=== PATIENT | female | born 1990 | race Caucasian/White ===

== ENCOUNTER 2017-03-19 16:22 | Inpatient (IN) | payer SELFPAY ==
[2017-03-19 17:32] VITALS: BP 121/84; PULSE 77; RESP 22; TEMP 98; O2SAT 98
[2017-03-19] MEDS ORDERED: SENNOSIDES 8.6 MG TAB PO PRN (18:00)
[2017-03-19] MEDS ORDERED: ACETAMINOPHEN/HYDROcodone 325 MG/7.5 MG TAB PO PRN (18:00)
[2017-03-19] MEDS ORDERED: ONDANSETRON HCL 4 MG/2 ML VIAL IVP PRN (18:00)
[2017-03-19] MEDS ORDERED: Post-op Orders (for Pharmacy) MISC XX ONE (18:00)
[2017-03-19] MEDS ORDERED: SODIUM CHLORIDE 0.9% FLUSH 10 ML FLUSH IV FLUSH PRN (18:00)
[2017-03-19] MEDS ORDERED: LACTULOSE SYRUP 20 GM/30 ML CUP PO PRN (18:00)
[2017-03-19] MEDS ORDERED: diphenhydrAMINE HCL 25 MG CAP PO PRN (18:00)
[2017-03-19] MEDS: KETOROLAC TROMETHAMINE 30 MG/ML (IVP) VIAL IVP SCH ×2 (18:26→21:13)
[2017-03-19] MEDS: MORPHINE SULFATE 4 MG/ML INJ IV PRN ×2 (18:26→22:44)
[2017-03-19 20:58] VITALS: BP 151/76; PULSE 87; RESP 18; TEMP 99.7; O2SAT 99
[2017-03-19] MEDS: ACETAMINOPHEN/HYDROcodone 325 MG/10 MG TAB PO PRN (21:12)
[2017-03-19] MEDS: SODIUM CHLORIDE 0.9% FLUSH 10 ML FLUSH IV FLUSH SCH (21:12)
[2017-03-19] MEDS: DOCUSATE SODIUM 50 MG/SENNA 8.6 MG TAB PO SCH (21:12)
[2017-03-20 00:33] VITALS: BP 124/70; PULSE 62; RESP 18; TEMP 98.5; O2SAT 99
[2017-03-20] MEDS: ACETAMINOPHEN/HYDROcodone 325 MG/10 MG TAB PO PRN ×5 (04:10→23:32)
[2017-03-20 04:19] LABS: HEMATOCRIT 37.1 % (35.0-46.0); MEAN CELL VOLUME 88.8 FL (80.0-100.0); MEAN CORPUSCULAR HEMOGLOBIN 30.3 PG (27.0-34.0); MEAN CORPUSCULAR HGB CONC 34.1 % (32.0-36.0); PLATELET COUNT 332 TH/MM3 (150-450); RED BLOOD COUNT 4.18 MIL/MM3 (4.00-5.30); RED CELL DISTRIBUTION WIDTH 12.7 % (11.6-17.2); REVIEW FLAG FINAL; WHITE BLOOD COUNT 7.7 TH/MM3 (4.0-11.0)
[2017-03-20 04:25] LABS: PROTHROMBIN TIME - PATIENT 9.9 SEC (9.8-11.6)
[2017-03-20] MEDS ORDERED: LACTATED RINGER'S 1000 ML IV PRN (04:30)
[2017-03-20] MEDS ORDERED: CHLORHEXIDINE GLUCONATE 2 % 1 PACK (2 CLOTHS) TOPICAL PRN (04:30)
[2017-03-20] MEDS ORDERED: POVIDONE IODINE 5% (ANTISEPSIS KIT) 4 APPLICATIONS EACH NARE PRN (04:30)
[2017-03-20 04:53] VITALS: BP 104/73; PULSE 82; RESP 18; TEMP 96.9; O2SAT 99
[2017-03-20] MEDS: KETOROLAC TROMETHAMINE 30 MG/ML (IVP) VIAL IVP SCH ×3 (05:47→23:31)
[2017-03-20] MEDS: MORPHINE SULFATE 4 MG/ML INJ IV PRN (05:57)
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
[2017-03-20] MEDS: DOCUSATE SODIUM 50 MG/SENNA 8.6 MG TAB PO SCH ×2 (07:32→20:16)
[2017-03-20] MEDS: SODIUM CHLORIDE 0.9% FLUSH 10 ML FLUSH IV FLUSH SCH ×2 (07:56→20:17)
[2017-03-20 08:00] VITALS: BP 116/69; PULSE 73; RESP 16; TEMP 97.6; O2SAT 99
[2017-03-20] MEDS ORDERED: FAMOTIDINE 20 MG/2 ML VIAL ONE (11:12)
[2017-03-20] MEDS ORDERED: APREPITANT 40 MG CAP ONE (11:22)
[2017-03-20] MEDS ORDERED: GENTAMICIN SULFATE 80 MG/2 ML VIAL ONE (11:27)
[2017-03-20] MEDS ORDERED: VANCOMYCIN HCL 1000 MG VIAL ONE (12:17)
[2017-03-20] MEDS ORDERED: ceFAZolin INJ 1,000 MG VIAL IV ONE (13:23)
[2017-03-20] MEDS ORDERED: ACETAMINOPHEN/HYDROcodone 325 MG/10 MG TAB PO PRN (13:45)
[2017-03-20] MEDS ORDERED: MORPHINE SULFATE 4 MG/ML INJ IV PUSH PRN (13:45)
[2017-03-20] MEDS ORDERED: MISCELLANEOUS NURSING INFORMATION XX PRN (13:45)
[2017-03-20] MEDS ORDERED: Post-op Orders (for Pharmacy) MISC XX ONE (13:45)
[2017-03-20] MEDS ORDERED: NALOXONE HCL 0.4 MG/ML AMP IV PUSH PRN (13:45)
--- NOTE | 2017-03-20 13:52 | PD.OP ---
cc: Malik Ramirez MD Operative Report Date of Surgery: Mar 20, 2017 Preoperative Diagnosis: Bicondylar right tibial plateau fracture Postoperative Diagnosis: Procedure: Open reduction internal fixation bicondylar right tibial plateau fracture Anesthesia: Gen. Surgeon: Malik Ramirez Latcher(s): Ulises Kern PA-C The surgical procedure was assisted by my physician assistant banquet manager. My P.A. presence was necessary throughout this case for the manipulation and positioning of the surgical extremity. My P.A. was assisting me throughout the duration of this procedure. The skill set of a physician assistant banquet manager was medically necessary to complete this procedure. During the surgical case the surgical garment assembler was working at the back table and the physician assistant banquet manager was directly assisting me. Operation and Findings: This patient was seen and evaluated preoperatively. Patient sustained an injury resulting a bicondylar right tibial plateau fracture. Informed consent was obtained preoperatively after detailed discussion of the risks and benefits of surgery. Risk of surgery including bleeding, infection, nonunion, painful hardware, stiffness, loss of motion, arthritis, need for knee replacement, as well as medical complications including blood clots, stroke, heart attack, and were discussed. I also discussed the possibility of using allograft bone graft . Preoperatively the operative site was marked. Patient was brought to the operating room and placed on the operating room table. Intravenous sedation and general endotracheal anesthesia were administered. IV antibiotics were given and a time out procedure was preformed. The operative leg was prepped with alcohol followed by Hibiclens and draped in the usual sterile fashion. Attention was now turned towards the medial tibial plateau. A 6 inch incision was made over the posterior medial aspect of the tibial plateau. Saphenous vein was protected. The PES insertion was elevated to expose the posterior medial tibial plateau. Fracture was visualized. Attention was now turned toward reduction. Traction was applied. Fracture was manipulated. Fracture keyed in excellent alignment. A fracture tenaculum was used to compress fracture. K wires were used for provisional fixation. Fluoroscopy confirmed excellent alignment of fracture. A 3.5 cortical lag screw was placed from anterior to posterior. Good compression was obtained. Next attention was turned towards the lateral tibial plateau. A window was made in the metaphyseal region. Bone tamps were now used to elevate the depressed portion of the posterior lateral tibial plateau. Articular surface was elevated into excellent position. 20 cc of cancellus bone chips were now packed underneath the articular surface for additional support. Multiplanar fluoroscopy confirmed excellent alignment of fractures. A Synthes plate was now placed along the posterior medial tibial plateau. Plate was provisionally held to bone with K wires. Fluoroscopy confirmed plate placement. 3.5 cortical screws were used to compress plate to bone. Additional locking screws were placed proximally. 3 additional 3.5 cortical lag screws were placed from medial to lateral to support the articular surface. Screws were predrilled and premeasured for appropriate length. Final fluoroscopy showed excellent alignment of fracture with well-placed hardware. The incision was thoroughly irrigated. Incisions were thoroughly irrigated. Attention was now turned to closure. Fascia and iliotibial band were closed with #1 Vicryl,. Subcutaneous tissues closed with 3-0 Vicryl and skin was closed with delvin. Sterile dressings were applied. The patient was transferred to recovery in stable condition. Malik Ramirez MD Mar 20, 2017 13:52
[2017-03-20] MEDS ORDERED: DO NOT ADM ANY ANTICOAGULANT DRUGS PRN (13:55)
--- NOTE | 2017-03-20 13:57 | RADRPT ---
EXAM DATE/TIME: 03/20/2017 13:19 [place] COMPARISON: No previous studies available for comparison. INDICATIONS : ORIF right tibial plateau fracture. MEDICAL HISTORY : Unobtainable. SURGICAL HISTORY : Unobtainable. ENCOUNTER: Initial ACUITY: 1 day PAIN SCORE: Non-responsive. LOCATION: Right knee. FINDINGS: Plate with screws is seen bridging the plateau fracture. Alignment is anatomic. CONCLUSION: Anatomic alignment Caio Orozco MD FACR on March 20, 2017 at 13:55 Board Certified Radiologist. This report was verified electronically.
[2017-03-20] MEDS ORDERED: KETOROLAC TROMETHAMINE 30 MG/ML (IVP) VIAL IVP SCH (14:00)
[2017-03-20] MEDS ORDERED: HYDROmorphone HCL PF 1 MG/ML VIAL ONE (14:09)
[2017-03-20] MEDS ORDERED: *MEPERIDINE 25 MG INJ VIAL PERIprocedural Use ONLY ONE (14:19)
[2017-03-20] MEDS: LACTATED RINGER'S 1000 ML INJ 1,000 ML IV SCH (14:30)
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
[2017-03-20] MEDS ORDERED: ERGOCALCIFEROL (VIT D2) 50,000 UNIT CAP PO SCH (15:00)
[2017-03-20] MEDS ORDERED: *HYDROmorphone PF 1 MG VIAL PERIprocedural Use ONLY ONE (15:32)
[2017-03-20 16:36] VITALS: BP 120/83; PULSE 70; RESP 16; TEMP 96; O2SAT 97
[2017-03-20] MEDS: CALCIUM/VITAMIN D 250 MG/125 U TAB PO SCH (16:47)
[2017-03-20] MEDS: MORPHINE SULFATE 4 MG/ML INJ IV PUSH PRN (19:11)
[2017-03-20] MEDS: MAGNESIUM HYDROXIDE SUSP 30 ML CUP PO PRN (20:16)
[2017-03-20] MEDS: ceFAZolin 2 GM PREMIX 50 ML IV SCH (20:16)
[2017-03-20 20:53] VITALS: BP 117/72; PULSE 85; RESP 18; TEMP 98.3; O2SAT 98
[2017-03-20] MEDS: VANCOMYCIN INJ 1,000 MG in SODIUM CHLOR 0.9% 250 ML INJ 250 ML IV SCH (23:31)
[2017-03-21] VITALS (8 sets, daily range): BP systolic 101–126; BP diastolic 58–75; PULSE 58–80; RESP 16–18; TEMP 97.1–98.9; O2SAT 97–99
[2017-03-21] MEDS: MORPHINE SULFATE 4 MG/ML INJ IV PUSH PRN ×4 (00:59→22:39)
[2017-03-21] MEDS: LACTATED RINGER'S 1000 ML INJ 1,000 ML IV SCH ×2 (04:40→14:41)
[2017-03-21] MEDS: ACETAMINOPHEN/HYDROcodone 325 MG/10 MG TAB PO PRN ×5 (04:43→20:16)
[2017-03-21] MEDS: ceFAZolin 2 GM PREMIX 50 ML IV SCH ×3 (04:43→20:10)
--- NOTE | 2017-03-21 07:10 | PD.ORT.PN ---
Subjective Subjective Remarks POD 1 s/p ORIF right tibial plateau doing well. reports pain. has not been out of bed yet Objective Vitals Vital Signs Date Time Temp Pulse Resp B/P (MAP) Pulse Ox O2 Delivery O2 Flow Rate FiO2 03/21/17 04:11 98.9 59 18 123/70 (87) 98 03/21/17 01:39 98 Nasal Cannula 2.00 03/21/17 00:25 97.1 80 18 116/71 (86) 98 03/20/17 20:53 98.3 85 18 117/72 (87) 98 03/20/17 16:36 96.0 70 16 120/83 (95) 97 03/20/17 15:30 98.0 80 16 136/80 (98) 100 Nasal Cannula 2 03/20/17 15:15 67 16 130/77 (94) 97 Nasal Cannula 2 03/20/17 15:00 67 16 130/76 (94) 97 Nasal Cannula 2 03/20/17 14:45 69 16 127/77 (94) 98 Nasal Cannula 2 03/20/17 14:30 64 16 139/80 (99) 99 Nasal Cannula 2 03/20/17 14:15 82 16 145/89 (107) 100 Nasal Cannula 2 03/20/17 13:55 98.0 101 16 166/95 (118) 100 Nasal Cannula 2 03/20/17 08:00 97.6 73 16 116/69 (85) 99 I/O 03/20/17 03/20/17 03/20/17 03/21/17 03/21/17 03/21/17 07:00 15:00 23:00 07:00 15:00 23:00 Intake Total 0 ml 355.9 ml 250 ml Balance 0 ml 355.9 ml 250 ml Intake Oral 0 ml 240 ml IV Total 115.9 ml 250 ml # Voids 1 2 # Bowel Movements 0 0 Result Diagram: 03/20/17 0913 Objective Remarks RLE: dressings clean and dry. intact. NVI. +CKS. pain in calf with dorsiflexion. compartments soft Assessment & Plan Problem List: (1) Tibial plateau fracture, right ICD Codes: S82.141A - Displaced bicondylar fracture of right tibia, initial encounter for closed fracture Assessment and Plan 1) Right Tibial Plateau Fx s/p ORIF - POD 1 -NWB -knee brace -PT for PROM 0-90 -no active motion, leg lifts, quad sets -daily dressing changes POD 2 -plan for home with [facility] tomorrow if patient doing well -DVT prophylaxis -f/u with Jonatan or PA in 2 weeks Ulises Kern/First Tiffany JOHNSON Mar 21, 2017 07:10
[2017-03-21] MEDS ORDERED: XARE10TA PO (07:12)
[2017-03-21] MEDS ORDERED: HYDR-3583 PO (07:12)
[2017-03-21] MEDS ORDERED: WHEEMIS3 (07:12)
[2017-03-21] MEDS ORDERED: WALKER/ADULT/FO1 MIS (07:12)
--- NOTE | 2017-03-21 07:13 | HHI.FF ---
Face to Face Verification Diagnosis: (1) Tibial plateau fracture, right Physical Therapy Gait training Knee: Knee fracture, Protocol: Right, Non weight bearing Canvas Knee Splint: Remove only with PT Right LE Weight Bearing: Non WB, No Strengthening, No Quad Sets Right LE Range of Motion: Passive ROM (0-90deg) Nursing Dressing Changes: Daily dressing change, Bhupinder wrap, 4x4s, Xeroform I have seen patient Ginette Wing on 03/21/17. My clinical findings support the need for the requested home health care services because: Ltd mobility - disease progression I certify that my clinical findings support that this patient is homebound because: Post-op weakness Ulises Kern/First Tiffany JOHNSON Mar 21, 2017 07:13
[2017-03-21 07:35] LABS: HEMATOCRIT 32.7 % (35.0-46.0); REVIEW FLAG FINAL
[2017-03-21] MEDS: KETOROLAC TROMETHAMINE 30 MG/ML (IVP) VIAL IVP SCH ×3 (08:44→22:40)
[2017-03-21] MEDS: CHOLECALCIFEROL (VIT D3) 1000 UNIT TAB PO SCH (08:46)
[2017-03-21] MEDS: CALCIUM/VITAMIN D 250 MG/125 U TAB PO SCH ×3 (08:46→17:28)
[2017-03-21] MEDS: DOCUSATE SODIUM 50 MG/SENNA 8.6 MG TAB PO SCH ×2 (08:46→20:10)
[2017-03-21] MEDS: MAGNESIUM HYDROXIDE SUSP 30 ML CUP PO PRN (08:48)
[2017-03-21] MEDS: SODIUM CHLORIDE 0.9% FLUSH 10 ML FLUSH IV FLUSH SCH ×2 (08:49→20:10)
[2017-03-21] MEDS: VANCOMYCIN INJ 1,000 MG in SODIUM CHLOR 0.9% 250 ML INJ 250 ML IV SCH ×2 (12:16→22:40)
[2017-03-21] MEDS: ENOXAPARIN SODIUM 30 MG/0.3 ML SYRINGE SQ SCH (13:40)
[2017-03-22 00:53] VITALS: BP 103/61; PULSE 77; RESP 16; TEMP 98.2; O2SAT 97
[2017-03-22] MEDS: ENOXAPARIN SODIUM 30 MG/0.3 ML SYRINGE SQ SCH ×2 (01:08→12:20)
[2017-03-22] MEDS: ACETAMINOPHEN/HYDROcodone 325 MG/10 MG TAB PO PRN ×5 (01:09→15:43)
[2017-03-22] MEDS: LACTATED RINGER'S 1000 ML INJ 1,000 ML IV SCH (02:40)
[2017-03-22] MEDS: ceFAZolin 2 GM PREMIX 50 ML IV SCH ×2 (04:49→12:21)
--- NOTE | 2017-03-22 06:46 | PD.ORT.PN ---
Subjective Subjective Remarks POD 2 s/p ORIF right tibial plateau doing well. reports pain. out of bed with walker. Objective Vitals Vital Signs Date Time Temp Pulse Resp B/P (MAP) Pulse Ox O2 Delivery O2 Flow Rate FiO2 03/22/17 00:53 98.2 77 16 103/61 (75) 97 03/21/17 21:38 98.3 58 16 123/75 (91) 99 03/21/17 21:18 97 03/21/17 16:00 98.1 62 18 101/58 (72) 97 03/21/17 12:00 97.5 78 18 119/67 (84) 99 03/21/17 08:00 98.6 77 18 126/75 (92) 98 I/O 03/21/17 03/21/17 03/21/17 03/22/17 03/22/17 03/22/17 07:00 15:00 23:00 07:00 15:00 23:00 Intake Total 490 ml 480 ml Balance 490 ml 480 ml Intake Oral 240 ml 480 ml IV Total 250 ml # Voids 1 2 # Bowel Movements 0 1 Result Diagram: 03/21/17 0654 Objective Remarks RLE: dressings clean and dry. intact. NVI. +CKS. pain in calf with dorsiflexion. compartments soft Assessment & Plan Problem List: (1) Tibial plateau fracture, right ICD Codes: S82.141A - Displaced bicondylar fracture of right tibia, initial encounter for closed fracture Qualifiers: Qualified Codes: S82.141A - Displaced bicondylar fracture of right tibia, initial encounter for closed fracture Assessment and Plan 1) Right Tibial Plateau Fx s/p ORIF - POD 2 -NWB -knee brace -PT for PROM 0-90 -no active motion, leg lifts, quad sets -daily dressing changes POD 2 -plan for home with [facility] -DVT prophylaxis -f/u with Jonatan or PA in 2 weeks Ulises Kern/Dock Supervisor PA Mar 22, 2017 06:46
[2017-03-22] MEDS ORDERED: HYDR-3583 PO (06:56)
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
[2017-03-22] MEDS: DOCUSATE SODIUM 50 MG/SENNA 8.6 MG TAB PO SCH (07:40)
[2017-03-22] MEDS: CALCIUM/VITAMIN D 250 MG/125 U TAB PO SCH ×2 (07:40→12:20)
[2017-03-22] MEDS: CHOLECALCIFEROL (VIT D3) 1000 UNIT TAB PO SCH (07:40)
[2017-03-22] MEDS: SODIUM CHLORIDE 0.9% FLUSH 10 ML FLUSH IV FLUSH SCH (07:41)
[2017-03-22] MEDS: KETOROLAC TROMETHAMINE 30 MG/ML (IVP) VIAL IVP SCH (07:41)
[2017-03-22 08:00] VITALS: BP 122/70; PULSE 76; RESP 16; TEMP 99; O2SAT 100
[2017-03-22 12:00] VITALS: BP 139/70; PULSE 96; RESP 16; TEMP 97.6; O2SAT 96
== END 2017-03-22 16:39 | disposition home or self-care (01) | DRG 494 ==
LOC: N06A 17:37 → EDBD 17:37
PROVIDERS: ADMIT Orthopaedic Surgery Orthopaedic Trauma; ATTEND Orthopaedic Surgery Orthopaedic Trauma
PROC: 0QSG04Z Reposition Right Tibia with Internal Fixation Device, Open Approach (ICD-10-PCS; principal; 2017-03-20 11:57)
DX: S82.141A Displaced bicondylar fracture of right tibia, initial encounter for closed fracture (principal); E66.3 Overweight; V19.9XXA Pedal cyclist (driver) (passenger) injured in unspecified traffic accident, initial encounter; Y93.55 Activity, bike riding
CPT/HCPCS: 73560; 76000; 85014; 85018; 85027; 85610; J0690; J1170; J1580; J1650; J1885; J2175; J2270; J3370; J7050; J7120; J8501; L1830